=== PATIENT | female | born 1990 | race Caucasian/White ===

== ENCOUNTER 2016-08-03 21:22 | Emergency (ER) | payer OTHER ==
[2016-08-04] MEDS ORDERED: predniSONE TAB* 20 MG PO ONE (00:08)
--- NOTE | 2016-08-04 01:45 | UC ---
Sharath Castillo Janilya, scribed for Perla Camacho DO on 08/03/16 at 2324 . Skin Complaint HPI - HPI Summary HPI Summary: A 26 y/o female came in to [facility] presenting w/ a gradual onset of constant allergic reaction to poison grace. According to pt, it started on Saturday, 07/29, but pt says she did not notice it until Saturday, 08/01. Pt states she states that it has spread to hand, neck and face, including the mouth and in her nostril. She says that her face feels swollen and tingly. Her eyes have been red , watery and irritated. No fb sensation. Pt reports runny nose but she is unsure whether it is related to poison grace. Pt has a h/o severe rxn to posoin grace. The last time she had poison grace was in 2009, for which she was hospitalized. She was on Prednisone and Abx. - History of Current Complaint Chief Complaint: UCRash Stated Complaint: RASH Hx Obtained From: Patient Hx Last Menstrual Period: 07/26/16 Onset/Duration: Gradual Onset, Lasting Days, Still Present Skin Exposure Onset/Duration: Days Ago Timing: Constant Onset Severity: Moderate Current Severity: Moderate Location: Face - possibly including the eyes, Nose, Hand (Right), Other - neck Character: Pruritus, Pain, Raised Aggravating: Nothing Alleviating: Nothing Associated Signs & Symptoms: Positive: Rash. Negative: Nausea, Vomiting, Difficulty Breathing, Fever, Cough, Wheezing, Chest Pain, Hoarseness, Throat Tightening, Abdominal Pain, Lightheadedness, Syncope - Allergy/Home Medications Allergies/Adverse Reactions: Allergies Allergy/AdvReac Type Severity Reaction Status Date / Time Seasonal Allergy Congestion Uncoded 12/15/15 08:43 Review of Systems Constitutional: Negative Skin: Rash Eyes: Negative ENT: Negative Respiratory: Negative Cardiovascular: Negative Gastrointestinal: Negative Genitourinary: Negative Motor: Negative Neurovascular: Negative Musculoskeletal: Edema - facial due to poison grace Neurological: Paresthesia - facial due to poison grace Psychological: Negative All Other Systems Reviewed And Are Negative: Yes PMH/Surg Hx/FS Hx/Imm Hx Previously Healthy: Yes Endocrine History Of: Denies: Diabetes, Thyroid Disease Cardiovascular History Of: Denies: Cardiac Disorders, Hypertension Respiratory History Of: Denies: COPD, Asthma GI/ History Of: Denies: Ulcer - Surgical History Surgical History: Yes Surgery Procedure, Year, and Place: bunion surgery, bilateral, left knee surgery , tonsilectomy, wisdom teeth - Family History Known Family History: Positive: Cardiac Disease, Other - cancer and CVA - Social History Occupation: Employed Full-time Alcohol Use: None Substance Use Type: None Smoking Status (MU): Former Smoker Physical Exam Triage Information Reviewed: Yes Appearance: Well-Appearing, No Pain Distress, Well-Nourished Vital Signs: Initial Vital Signs Temp 97.2 F 08/03/16 22:27 Pulse 76 08/03/16 22:27 Resp 20 08/03/16 22:27 BP 108/73 08/03/16 22:27 Pulse Ox 100 08/03/16 22:27 Vital Signs Reviewed: Yes Eyes: Positive: Conjunctiva Inflamed, Discharge - clear ENT: Positive: Hearing grossly normal, TMs normal, Other: - puritic lesion noted on edge of rt nares. Negative: Muffled/hoarse voice Neck: Positive: Supple, Nontender Respiratory: Positive: Lungs clear, Normal breath sounds, No respiratory distress, No accessory muscle use Cardiovascular: Positive: RRR, No Murmur Musculoskeletal Exam: Normal Neurological: Positive: Alert, Muscle Tone Normal Psychological Exam: Normal Psychological: Positive: Age Appropriate Behavior Skin: Positive: Other - Purutic, blistery lesions on rt hand, the left side of cheek, on the edge of right nares, and left neck Course/Dx - Differential Diagnoses - Skin Complaint Differential Diagnoses: Allergic Reaction, Contact Dermatitis, Impetigo, Poison Grace, Poison Cherokee - Diagnoses Provider Diagnoses: posion grace, conjunctivitis Discharge - Discharge Plan Condition: Stable Disposition: HOME Prescriptions: Tobramycin/Dexameth OPTH.SUSP* [Tobradex 0.3-0.1%*] 1 drop BOTH EYES Q4H #1 btl predniSONE TAB* [Deltasone TAB*] 10 mg PO DAILY #34 tab Patient Education Materials: Poison Grace (ED), Conjunctivitis (ED) Referrals: No Primary Care Phys,NOPCP [Primary Care Provider] - Additional Instructions: CORTICOSTEROID MEDICATION: You have been given a medicine of the cortisone class. This medication is used to control inflammation or allergy. It is usually only given for a short period of time, until the acute process subsides. There are usually no side effects from short-term use of cortisone-like medications. Some persons feel an increased sense of well-being and are not sleepy at bedtime. Long-term use of cortisone medications is best avoided, unless required for a severe condition. If your condition does not remit, or relapses after the course of corticosteroid medication, you should consult your physician. Contact the physician if you develop lightheadedness, black or tarry stools , swelling of the legs, or significant rapid change in weight. USE EYE DROPS DIRECT. FOLLOW-UP CARE: You should establish with a private physician for follow-up care. If you are unable to get a timely appointment, or if you are worsening, call us or return for re-evaluation. An additional resource available to assist in finding the appropriate physician for your health care needs is the [facility]ician Referral Center. You may contact them by calling [phone]. The documentation as recorded by the Sharath hays Janilya accurately reflects the service I personally performed and the decisions made by , Perla Camacho DO.
== END 2016-08-04 00:20 | disposition home or self-care (01) ==
LOC: UCEAST 21:22
DX: L23.7 Allergic contact dermatitis due to plants, except food (principal); H10.33 Unspecified acute conjunctivitis, bilateral; Z87.891 Personal history of nicotine dependence
CPT/HCPCS: 99212; G0463; J7512

== ENCOUNTER 2017-12-22 21:36 | Inpatient (IN) | payer OTHER ==
--- NOTE | 2017-12-22 22:02 | ED ---
Psychiatric Complaint - HPI Summary HPI Summary: This patient is a 27 year old F presenting to [facility] with a chief complaint of SI for the last two months that is worse in the last two weeks. She states that in September she had something the triggered her OCD and since then her anxiety and SI has been back. She states that usually has relief but she has not had relief recently. Pt states she has been being truthful with her friends and when she went to go to see them they had contacted the police and they brought her here. Patient reports depression. Pt state she sees a counselor and still goes to work. Pt states she is taking her medications as directed. LNMP was the first of this month. - History Of Current Complaint Chief Complaint: EDMentalHealth Time Seen by Provider: 12/22/17 21:57 Hx Obtained From: Patient Hx Last Menstrual Period: 07/26/16 Onset/Duration: Lasting Weeks, Still Present, Worse Since Timing: Constant Severity Initially: Moderate Severity Currently: Moderate Character: Depressed, Anxious Aggravating Factor(s): Recent Stress Related History: Positive For: Prior Psychiatric Issues Has Suicidal: Reports: Thoughts. Denies: With A Plan, Demonstrates Gesture - Allergies/Home Medications Allergies/Adverse Reactions: Allergies Allergy/AdvReac Type Severity Reaction Status Date / Time Seasonal Allergy Congestion Uncoded 12/22/17 21:48 Home Medications: Home Medications Depakote 250 mg PO DAILY 12/22/17 [History Confirmed 12/22/17] Sertraline* [Zoloft*] 50 mg PO DAILY 12/22/17 [History Confirmed 12/22/17] traZODone TAB* [Desyrel TAB*] 50 mg PO BEDTIME PRN 12/22/17 [History Confirmed 12/22/17] PMH/Surg Hx/FS Hx/Imm Hx Endocrine/Hematology History: Denies: Hx Diabetes, Hx Thyroid Disease Cardiovascular History: Denies: Hx Hypertension Respiratory History: Denies: Hx Asthma, Hx Chronic Obstructive Pulmonary Disease (COPD) GI History: Denies: Hx Ulcer Psychiatric History: Reports: Hx Anxiety, Hx Depression, Hx Panic Disorder, Other Psychiatric Issues/Disorders - OCD and PTSD - Surgical History Surgery Procedure, Year, and Place: bunion surgery, bilateral, left knee surgery , tonsilectomy, wisdom teeth Infectious Disease History: No Infectious Disease History: Denies: Hx Clostridium Difficile, Hx Hepatitis, Hx Human Immunodeficiency Virus (HIV), Hx of Known/Suspected MRSA, Hx Shingles, Hx Tuberculosis, Hx Known/ Suspected VRE, Hx Known/Suspected VRSA, History Other Infectious Disease, Traveled Outside the [place] in Last 30 Days - Family History Known Family History: Positive: Cardiac Disease, Other - cancer and CVA - Social History Alcohol Use: None Substance Use Type: Reports: None Smoking Status (MU): Former Smoker Review of Systems Negative: Fever Positive: Anxious, Depressed, Other - SI All Other Systems Reviewed And Are Negative: Yes Physical Exam - Summary Physical Exam Summary: Appearance: Well-appearing, Well-nourished, lying in bed comfortably Skin: Warm, dry, no obvious rash Eyes: sclera anicteric, no conjunctival pallor ENT: mucous membranes moist, pharynx appears normal Neck: Supple, nontender Respiratory: Clear to auscultation, no signs of respiratory distress Cardiovascular: Normal S1, S2. No murmurs. Normal distal pulses in tibial and radial bilaterally. Abdomen: Soft, nontender, normal active bowel sounds present Musculoskeletal: Normal, Strength/ROM Intact Neurological: A&Ox3, awake and alert, mentation is normal, speech is fluent and appropriate Psychiatric: affect is depressed Triage Information Reviewed: Yes Vital Signs On Initial Exam: Initial Vitals Temp Pulse Resp BP Pulse Ox 98.6 F 86 16 134/85 96 12/22/17 21:38 12/22/17 21:38 12/22/17 21:38 12/22/17 21:38 12/22/17 21:38 Vital Signs Reviewed: Yes Diagnostics - Vital Signs Vital Signs Temp Pulse Resp BP Pulse Ox 12/22/17 21:38 98.6 F 86 16 134/85 96 - Laboratory Result Diagrams: 12/22/17 22:45 12/22/17 22:44 Lab Statement: Any lab studies that have been ordered have been reviewed, and results considered in the medical decision making process. Course/Dx - Course Course Of Treatment: This patient is a 27 year old F presenting to [facility] with a chief complaint of SI for the last two months that is worse in the last two weeks. She states that in September she had something the triggered her OCD and since then her anxiety and SI has been back. She states that usually has relief but she has not had relief recently. Pt states she has been being truthful with her friends and when she went to go to see them they had contacted the police and they brought her here. Patient reports depression. Pt state she sees a counselor and still goes to work. Pt states she is taking her medications as directed. LNMP was the first of this month. After a MHE by Dr. Ash the patient was not deemed stable to be discharged home. The patient will be admitted for unspecified depression as a voluntary admission. - Differential Dx/Clinical Impression Provider Diagnosis: Major depressive disorder, recurrent, unspecified Discharge - Sign-Out/Discharge Documenting (check all that apply): Patient Departure - admitted - Discharge Plan Condition: Fair Disposition: [facility]CHIATRIC FACILITY-[facility] Referrals: No Primary Care Phys,NOPCP [Medical Doctor] - - Attestation Statements Document Initiated by Scribe: Yes Documenting Scribe: Oswald Ortiz Provider For Whom Scribe is Documenting (Include Credential): Sunny Terrazas MD Scribe Attestation: Oswald Castillo , scribed for Sunny Terrazas MD on 12/23/17 at 0316.
[2017-12-22 22:58] LABS: ABS Basophils 0 10^3/ul (0-0.2); ABS Eosinophils 0.1 10^3/ul (0-0.6); ABS Lymphocytes 1.8 10^3/ul (1.0-4.8); ABS Monocytes 0.6 10^3/ul (0-0.8); ABS Neutrophils 5.4 10^3/ul (1.5-7.7); ABS Nucleated RBC 0 10^3/ul; Eosinophil % 1.4 % (0-6); Hematocrit 41 % (35-47); Hemoglobin 14.2 g/dl (12.0-16.0); Lymphocyte % 22.8 % (25-47); Mean Corpuscular HGB Conc 34 g/dl (31-36); Mean Corpuscular Hemoglobin 32 pg (27-31); Mean Corpuscular Volume 93 fL (80-97); Mean Platelet Volume 8.8 um3 (7.4-10.4); Nucleated Red Blood Cells % 0.1; Platelet Count 223 10^3/ul (150-450); Red Blood Count 4.43 10^6/ul (4.00-5.40); Red Cell Distribution Width 13 % (10.5-15)
[2017-12-22 23:17] LABS: EGFR Non-African American 87.3 (>60)
[2017-12-23] MEDS ORDERED: Al Hydrox/Mg Hydrox/Simet LIQ* 30 ML UDC PO PRN (15:12)
[2017-12-23] MEDS: Acetaminophen TAB* 325 MG PO PRN (15:28)
[2017-12-23] MEDS: Sertraline* 100 MG TAB PO SCH (15:29)
[2017-12-23] MEDS: Prazosin CAP* 1 MG PO SCH (20:13)
[2017-12-23] MEDS: hydrOXYzine HCL TAB* 25 MG PO PRN (20:13)
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
[2017-12-24] MEDS: Sertraline* 100 MG TAB PO SCH (08:06)
[2017-12-24] MEDS: Acetaminophen TAB* 325 MG PO PRN (08:06)
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
[2017-12-24] MEDS: Prazosin CAP* 1 MG PO SCH (20:19)
[2017-12-24] MEDS: traZODone TAB* 50 MG TAB PO PRN (20:22)
[2017-12-24] MEDS: hydrOXYzine HCL TAB* 25 MG PO PRN (20:22)
[2017-12-25] MEDS: Sertraline* 100 MG TAB PO SCH (08:20)
[2017-12-25] MEDS ORDERED: Sertraline* 50 MG TAB PO ONE (14:41)
[2017-12-25] MEDS: hydrOXYzine HCL TAB* 25 MG PO PRN (14:42)
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
--- NOTE | 2017-12-25 16:28 | PN ---
[facility]: Group Therapy Note - Service Type Service Type: 30856 Group Psychotherapy - Medication Education Group: Patient attended group and presented with flat affect that did not vary with discussion. Although responsive to direct prompts to respond to questions, patient did not engage in spontaneous conversation.
[2017-12-25] MEDS: traZODone TAB* 50 MG TAB PO PRN (22:02)
[2017-12-25] MEDS: Prazosin CAP* 1 MG PO SCH (22:02)
[2017-12-26] MEDS: Acetaminophen TAB* 325 MG PO PRN (10:08)
[2017-12-26] MEDS: Sertraline* 100 MG TAB PO SCH (10:08)
[2017-12-26] MEDS: hydrOXYzine HCL TAB* 25 MG PO PRN (14:35)
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
[2017-12-26] MEDS: Prazosin CAP* 1 MG PO SCH (21:28)
[2017-12-27] MEDS: Sertraline* 100 MG TAB PO SCH (08:31)
[2017-12-27] MEDS: hydrOXYzine HCL TAB* 25 MG PO PRN ×2 (12:23→21:59)
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
[2017-12-27] MEDS: Prazosin CAP* 1 MG PO SCH (21:56)
[2017-12-28] MEDS: hydrOXYzine HCL TAB* 25 MG PO PRN ×2 (09:02→16:50)
[2017-12-28] MEDS: Sertraline* 100 MG TAB PO SCH (09:02)
[2017-12-28] MEDS: traZODone TAB* 50 MG TAB PO PRN (21:45)
[2017-12-28] MEDS: Prazosin CAP* 1 MG PO SCH (21:45)
[2017-12-29] MEDS: Sertraline* 100 MG TAB PO SCH (08:57)
[2017-12-29] MEDS: hydrOXYzine HCL TAB* 25 MG PO PRN (12:50)
[2017-12-29] MEDS: Prazosin CAP* 1 MG PO SCH (22:57)
[2017-12-30] MEDS: Sertraline* 100 MG TAB PO SCH (08:58)
[2017-12-30 09:18] VITALS: BP 117/63
[2017-12-30] MEDS: hydrOXYzine HCL TAB* 25 MG PO PRN (12:20)
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
== END 2017-12-30 16:35 | disposition home or self-care (01) | DRG 882 ==
LOC: ED 21:36 → BSU 12-23 06:13
PROVIDERS: ADMIT Psychiatry & Neurology Psychiatry; ATTEND Psychiatry & Neurology Psychiatry
DX: F42.8 Other obsessive-compulsive disorder (principal); R45.851 Suicidal ideations; Z62.810 Personal history of physical and sexual abuse in childhood; F43.10 Post-traumatic stress disorder, unspecified; Z79.899 Other long term (current) drug therapy; Z81.8 Family history of other mental and behavioral disorders
CPT/HCPCS: 36415; 80053; 80061; 80307; 80320; 83036; 84702; 85025; 90853; 99222; 99232; 99233; 99238; 99285; A9270-GY; G0480